=== PATIENT | male | born 2000 | race American Indian/Alaskan Native ===

== ENCOUNTER 2021-12-12 06:30 | Emergency (ER) | payer MEDICAID ==
[2021-12-12 10:49] LABS: Mucus,Urine 3+ /HPF
[2021-12-12 11:17] LABS: Bilirubin,Urine Negative (Negative); Color,Urine Yellow (Yellow)
[2021-12-12 11:18] LABS: Blood,Urine Small (Negative); Urobilinogen,Urine < 2.0 mg/dL (<2.0)
[2021-12-12] MEDS ORDERED: KETOROLAC 10 MG TAB PO ONE (11:27)
--- NOTE | 2021-12-12 11:30 | Emergency Department Report ---
ED Abdominal Pain HPI - General Chief Complaint: Urogenital-Male Stated Complaint: SIDE PAIN/UTI Time Seen by Provider: 12/12/21 11:13 Source: patient Mode of arrival: Ambulatory Limitations: No Limitations - History of Present Illness Initial Comments: 21-year-old black male presents to the emergency department for evaluation of left lower quadrant pain that started about an hour prior to arrival. He denies fever, nausea, vomiting, dysuria, and penile discharge. He states that he only has pain when he moves around or stretches the area. He denies injury or trauma. MD Complaint: abdominal pain -: Sudden, hour(s) Location: LLQ Radiation: none Migration to: no migration Severity: severe Severity scale (0 -10): 10 Quality: aching Consistency: intermittent Worsens With: movement, other (Palpation) Associated Symptoms: denies: nausea, vomiting, diarrhea, fever, chills, dysuria, hematemesis, hematochezia, melena, hematuria, anorexia, syncope - Related Data Previous Rx's Medication Instructions Recorded Last Taken Type Naproxen [Naprosyn] 500 mg PO BID #14 tab 12/12/21 Unknown Rx Allergies Allergy/AdvReac Type Severity Reaction Status Date / Time No Known Allergies Allergy Unverified 12/12/21 08:11 ED Review of Systems ROS: Stated complaint: SIDE PAIN/UTI Other details as noted in HPI Constitutional: denies: chills, fever Respiratory: denies: shortness of breath, SOB with exertion, SOB at rest Cardiovascular: denies: chest pain, palpitations Gastrointestinal: abdominal pain. denies: nausea, vomiting, diarrhea, hematemesis, melena, hematochezia Genitourinary: denies: urgency, dysuria, frequency, hematuria, discharge, testicular pain, testicular mass Musculoskeletal: denies: back pain Neurological: denies: headache, weakness ED Past Medical Hx - Medications Home Medications: Home Medications Medication Instructions Recorded Confirmed Last Taken Type Naproxen [Naprosyn] 500 mg PO BID #14 tab 12/12/21 Unknown Rx ED Physical Exam - General Limitations: No Limitations General appearance: alert, in no apparent distress - Head Head exam: Present: atraumatic, normocephalic - Eye Eye exam: Present: normal appearance. Absent: conjunctival injection - Neck Neck exam: Present: normal inspection. Absent: tenderness - Respiratory Respiratory exam: Present: normal lung sounds bilaterally. Absent: respiratory distress, wheezes, rales, rhonchi, stridor, chest wall tenderness, accessory muscle use - Cardiovascular Cardiovascular Exam: Present: regular rate, normal heart sounds - GI/Abdominal GI/Abdominal exam: Present: soft, normal bowel sounds. Absent: distended, tenderness, guarding, rebound, rigid - Extremities Exam Extremities exam: Present: normal inspection - Back Exam Back exam: Present: normal inspection. Absent: tenderness, CVA tenderness (R), CVA tenderness (L), paraspinal tenderness, vertebral tenderness - Neurological Exam Neurological exam: Present: alert, oriented X3 - Psychiatric Psychiatric exam: Present: normal affect, normal mood - Skin Skin exam: Present: warm, dry, intact, normal color ED Course Vital Signs 12/12/21 08:13 Temperature 98.3 F Pulse Rate 69 Respiratory 20 Rate Blood Pressure 133/66 [Right] O2 Sat by Pulse 97 Oximetry ED Medical Decision Making - Medical Decision Making 21-year-old black male presents to the emergency department for evaluation of left lower quadrant pain that started about an hour prior to arrival. He denies fever, nausea, vomiting, dysuria, and penile discharge. He states that he only has pain when he moves around or stretches the area. He denies injury or trauma. Upon initial assessment, patient noted to be sleeping and resting comfortably. Upon awakening, he stated that he did not have any abdominal pain at that time but had some pain with movement. No pain noted with palpation of abdomen, low suspicion for acute abdomen. UA with small amount of blood noted. He will be treated for musculoskeletal pain with 7-day course of NSAIDs and advised to follow-up with his primary care provider if no improvement or worsening symptom s. He verbalized understanding of and agreement with plan of care. Critical care attestation.: If time is entered above; I have spent that time in minutes in the direct care of this critically ill patient, excluding procedure time. ED Disposition Clinical Impression: Abdominal muscle pain Disposition: HOME / SELF CARE / HOMELESS Is pt being admited?: No Does the pt Need Aspirin: No Condition: Stable Instructions: Musculoskeletal Pain Additional Instructions: Take medications as prescribed. Follow-up with primary care provider for further evaluation and management. Prescriptions: Naproxen [Naprosyn] 500 mg PO BID #14 tab Referrals: ELDA LEDBETTER MD [Referring] - 3-5 Days Forms: Work/School Release Form(ED) Time of Disposition: 11:33
[2021-12-12 12:14] VITALS: BP 148/88
== END 2021-12-12 12:14 | disposition home or self-care (01) ==
LOC: ED 06:30
DX: R10.32 Left lower quadrant pain (principal)
CPT/HCPCS: 81001; 99283